=== PATIENT | male | born 1995 | race Caucasian/White ===

== ENCOUNTER 2020-08-02 01:40 | Emergency (ER) | payer MEDICAID ==
[~2020-08-02] VITALS: Ht 175.3 cm; Wt 72.6 kg
[2020-08-02 01:46] VITALS: Ht 175.3 cm; Wt 72.6 kg
[2020-08-02 13:02] VITALS: BP 117/61
== END 2020-08-02 13:02 | disposition home or self-care (01) ==
LOC: ED 01:40
DX: R44.0 Auditory hallucinations (principal); F15.10 Other stimulant abuse, uncomplicated; R45.1 Restlessness and agitation; F42.9 Obsessive-compulsive disorder, unspecified
CPT/HCPCS: 82962